=== PATIENT | female | born 1955 | race Caucasian/White ===

== ENCOUNTER 2018-09-22 09:26 | Day surgery (SDC) | payer OTHER ==
[2018-09-22] MEDS ORDERED: FENTAnyl 50 MCG/ML VIAL (11:53)
[2018-09-22] MEDS ORDERED: MIDAZOLAM 1 MG/ML 2 ML INJ ×2 (11:54)
== END 2018-09-22 15:04 | disposition home or self-care (01) ==
LOC: GIL 09:26
DX: Z12.11 Encounter for screening for malignant neoplasm of colon (principal); K64.8 Other hemorrhoids; I10 Essential (primary) hypertension
CPT/HCPCS: 45378; 88305